=== PATIENT | female | born 1965 | race Caucasian/White ===

== ENCOUNTER 2022-02-15 08:05 | Day surgery (SDC) | payer OTHER ==
[2022-02-11 18:16] VITALS: BMI 25.0
[2022-02-15] MEDS ORDERED: BUPIVACAINE HCL/PF 2.5 MG/ML - 30 ML VIAL IJ ONE (08:50)
[2022-02-15] MEDS ORDERED: MIDAZOLAM HCL 2 MG/2 ML SINGLE DOSE VIAL ONE ×2 (12:53)
[2022-02-15] MEDS ORDERED: BUPIVACAINE HCL/PF 0.25% (2.5MG/ML) 10 ML VIAL IJ ONE (13:45)
[2022-02-15] MEDS ORDERED: PROMETHAZINE HCL 25 MG/1 ML VIAL IVPUSH PRN (14:07)
[2022-02-15] MEDS ORDERED: ONDANSETRON 4 MG/2 ML VIAL IVPUSH PRN (14:07)
[2022-02-15] MEDS ORDERED: oxyCODONE HCL 5 MG TABLET PO PRN (14:07)
[2022-02-15] MEDS ORDERED: DEXAMETHASONE SOD PHOSPHATE 4 MG/1 ML VIAL IVPUSH ONE (14:08)
[2022-02-15] MEDS ORDERED: LACTATED RINGERS SOLUTION 1,000 ML IV SCH (14:15)
[2022-02-15] MEDS ORDERED: FENTANYL CITRATE/PF 50 MCG/ML VIAL ONE (14:38)
[2022-02-15 15:10] VITALS: TEMP 97.4
[2022-02-15 15:46] VITALS: BP 110/68; PULSE 65
== END 2022-02-15 15:45 | disposition home or self-care (01) ==
LOC: FASU 08:05
PROVIDERS: ATTEND Orthopaedic Surgery
PROC: 0SBD4ZZ Excision of Left Knee Joint, Percutaneous Endoscopic Approach (ICD-10-PCS; 2022-02-15)
PROC: 0SBD4ZZ Excision of Left Knee Joint, Percutaneous Endoscopic Approach (ICD-10-PCS; principal; 2022-02-15 13:29)
DX: S83.242A Other tear of medial meniscus, current injury, left knee, initial encounter (principal); S83.282A Other tear of lateral meniscus, current injury, left knee, initial encounter; S83.8X2A Sprain of other specified parts of left knee, initial encounter; M65.862 Other synovitis and tenosynovitis, left lower leg; X58.XXXA Exposure to other specified factors, initial encounter; Y93.9 Activity, unspecified; Y92.9 Unspecified place or not applicable
CPT/HCPCS: 94760

== ENCOUNTER 2022-09-18 12:28 | Day surgery (SDC) | payer OTHER ==
[2022-09-17 15:28] VITALS: BMI 26.2
[2022-09-18] MEDS ORDERED: DEXAMETHASONE SOD PHOSPHATE 10 MG/1 ML VIAL ONE (13:37)
[2022-09-18] MEDS ORDERED: MIDAZOLAM HCL 2 MG/2 ML SINGLE DOSE VIAL ONE (13:37)
[2022-09-18] MEDS ORDERED: ROPIVACAINE HCL 0.5% 30ML VIAL ONE (13:38)
[2022-09-18] MEDS ORDERED: BUPIVACAINE HCL 100 ML ONE (13:50)
[2022-09-18] MEDS ORDERED: ONDANSETRON 4 MG/2 ML VIAL IVPUSH PRN (15:26)
[2022-09-18] MEDS ORDERED: PROMETHAZINE HCL 25 MG/1 ML VIAL IVPUSH PRN (15:26)
[2022-09-18 15:38] VITALS: TEMP 97.6
[2022-09-18 16:33] VITALS: RESP 16
[2022-09-18 16:35] VITALS: BP 110/60; PULSE 51
== END 2022-09-18 16:49 | disposition home or self-care (01) ==
LOC: FASU 12:28
PROVIDERS: ATTEND Orthopaedic Surgery Hand Surgery
PROC: 0LN60ZZ Release Left Lower Arm and Wrist Tendon, Open Approach (ICD-10-PCS; 2022-09-18)
PROC: 0PSJ04Z Reposition Left Radius with Internal Fixation Device, Open Approach (ICD-10-PCS; principal; 2022-09-18 14:34)
DX: S52.572A Other intraarticular fracture of lower end of left radius, initial encounter for closed fracture (principal); X58.XXXA Exposure to other specified factors, initial encounter; Y93.9 Activity, unspecified; Y92.9 Unspecified place or not applicable
CPT/HCPCS: 25290; 25609; C1713; 73110-TC-LT-FY; 73130-TC-LT-FY; 94760; J1100